=== PATIENT | male | born 1985 | race Caucasian/White ===

== ENCOUNTER 2020-05-06 09:55 | Emergency (ER) | payer BC ==
[2020-05-06 10:00] VITALS: RESP 24; TEMP 97.9
[2020-05-06] MEDS ORDERED: MORPHINE SULFATE 4 MG/ML SYRINGE IM STA (10:32)
[2020-05-06] MEDS ORDERED: KETOROLAC 15 MG/ML 1 ML VIAL IM STA (10:32)
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
--- NOTE | 2020-05-06 11:15 | XR ---
EXAMINATION TYPE: XR Hip RT and AP Pelvis DATE OF EXAM: 05/06/2020 COMPARISON: NONE HISTORY: Pelvic and right hip pain TECHNIQUE: AP portable views of the right hip are obtained. Two views of the right hip are obtained. FINDINGS: There is no acute fracture/dislocation evident in the pelvis. The sacroiliac joints appea r symmetric and unremarkable. Pubic symphysis is intact. The overlying soft tissue appears unremarka ble. There is [id number] superior joint space loss in both hips. Femoral head shapes are mainta ined bilaterally. No significant acetabular spurring bilaterally. Two views of right hip show no acute fracture or dislocation. No focal lytic or sclerotic lesion see n in the proximal right femur. The overlying soft tissue is unremarkable. IMPRESSION: As above.
[2020-05-06] MEDS ORDERED: ACET/COD 300 MG/30 MG STARTER PACK 6 TAB BTL PO STA (11:25)
[2020-05-06 11:51] VITALS: BP 160/103; PULSE 85
== END 2020-05-06 11:51 | disposition home or self-care (01) ==
LOC: EC 09:55
DX: S76.011A Strain of muscle, fascia and tendon of right hip, initial encounter (principal); M25.851 Other specified joint disorders, right hip; F17.200 Nicotine dependence, unspecified, uncomplicated; Z88.2 Allergy status to sulfonamides; X58.XXXA Exposure to other specified factors, initial encounter
CPT/HCPCS: 73502; 99284; 96372 ×2; J2270; J1885